=== PATIENT | female | born 1995 | race Caucasian/White ===

== ENCOUNTER 2017-10-11 08:33 | Emergency (ER) | payer MEDICAID ==
[~2017-10-11] VITALS: Ht 165.1 cm; Wt 54.4 kg
[2017-10-11 08:38] VITALS: BP 126/72
[2017-10-11] MEDS ORDERED: IBUPROFEN 600 MG TABLET PO ONE ×2 (09:00→09:23)
== END 2017-10-11 10:27 | disposition home or self-care (01) ==
LOC: ER 08:35
DX: J02.9 Acute pharyngitis, unspecified (principal)
CPT/HCPCS: 87070; 87880; 99284; A4606; Z7610; 86403-TC